=== PATIENT | male | born 1995 | race Caucasian/White ===

== ENCOUNTER 2017-10-17 15:27 | Emergency (ER) | payer OTHER ==
[~2017-10-17] VITALS: Ht 182.9 cm; Wt 122.5 kg
[2017-10-17 15:49] VITALS: BP 148/88; PULSE 76; RESP 14; TEMP 98.2; O2SAT 100
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
[2017-10-17] MEDS ORDERED: ACETAMINOPHEN/HYDROcodone 325 MG/5 MG TAB PO ONE (19:45)
[2017-10-17] MEDS ORDERED: IBUPROFEN 800 MG TAB PO ONE (19:45)
[2017-10-17] MEDS ORDERED: DICL75TA PO (20:22)
[2017-10-17] MEDS ORDERED: CYCL10TA PO (20:22)
[2017-10-17 20:38] LABS: BILIRUBIN, URINE NEG (NEG); BLOOD, URINE SMALL (NEG); GLUCOSE,URINE NEG (NEG); KETONE, URINE NEG (NEG); MUCUS URINE FEW /lpf (OCC); NITRITE,URINE NEG (NEG); URINE COLOR YELLOW (YELLW/STRAW); URINE LEUKOCYTE ESTERASE NEG (NEG)
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
== END 2017-10-17 20:51 | disposition home or self-care (01) ==
LOC: NEPK 15:27
DX: S30.1XXA Contusion of abdominal wall, initial encounter (principal); W50.0XXA Accidental hit or strike by another person, initial encounter; Y93.89 Activity, other specified
CPT/HCPCS: 71101; 81001; 99283